=== PATIENT | male | born 2000 | race Caucasian/White ===

== ENCOUNTER → 2021-03-19 09:37 | Outpatient (CLI) | payer BC, SELFPAY ==
--- NOTE | ~2021-03-19 | XR_ITS ---
EXAMINATION: XR finger 4th RT min 2V DATE: 03/19/2021 09:50 INDICATION: Pain and swelling at the right fourth digit TECHNIQUE: Dorsal palmar, lateral and 2 oblique views of the right fourth digit were obtained COMPARISON: None FINDINGS: Alignment is normal. No fracture. Joint spaces are normal. No cortical erosions or periosteal reactio n. Soft tissue swelling centered at the fourth proximal interphalangeal joint. IMPRESSION: 1. No osseous abnormality. Reviewed, dictated and finalized at location A. BALL WINDER IMPRESSION: 1. No osseous abnormality.
== END ==
PROVIDERS: PCP Family Medicine; Visit Provider Family Medicine
DX: M79.644 Pain in right finger(s) (principal)
CPT/HCPCS: 73140

== ENCOUNTER → 2021-04-14 15:29 | Outpatient (CLI) | payer BC, SELFPAY ==
--- NOTE | ~2021-04-14 | XR_ITS ---
XR chest 2V DATE: 04/14/2021 15:41 INDICATION: Cough TECHNIQUE: 2 views COMPARISON: None FINDINGS: There is mild dextroscoliosis. Normal heart size. No hilar or mediastinal enlargement. N o pulmonary infiltrate or consolidation, pulmonary vascular congestion or pleural effusion or pneumot horax. IMPRESSION: No active cardiopulmonary disease Dextroscoliosis Reviewed, dictated and finalized at location B. [employer] MA[employer]GER
== END ==
PROVIDERS: Visit Provider Nurse Practitioner Family
DX: R05.9 Cough, unspecified (principal)
CPT/HCPCS: 71046

== ENCOUNTER 2021-06-13 12:42 | Outpatient (CLI) | payer BC, SELFPAY ==
--- NOTE | 2021-06-13 15:16 | WPDPFTINT ---
PFT Procedure Performed PFT Procedure Performed Spirometry with Pre/Post Bronchodilator Plethysmography (Lung Vol) Diffusing Cap (DLCO) Flow Vol Loop PFT Interpretation This is a pulmonary function test with pre and post-bronchodilator spirometry, plethysmography and diffusing capacity. The test was performed and results interpreted in accordance with the 2019 and 2005 ATS/ERS Task Force guidelines respectively using the Global Lung Function Initiative-2012 reference equations. Patient demonstrated good effort and cooperation. Reproducibility criteria were met. The quality of the pre bronchodilator spirometry maneuver was Grade B and post bronchodilator spirometry maneuver was Grade A. Findings: Spirometry: The contour the inspiratory and expiratory flow tracing are normal. The pre bronchodilator FVC is 6.10 L, 96% predicted. The pre bronchodilator FEV1 is 4.99 L, 94% predicted. The pre bronchodilator FEV1: FVC ratio is 82%. The post bronchodilator FVC is 5.92 L, representing a 3% decrease. The post bronchodilator FEV1 is 5.10 L, representing a 2% increase. The post bronchodilator FEV1: FVC ratio is 86%. Plethysmography: The total lung capacity is 7.99 L, 104% predicted. The functional residual capacity is 3.94 L, 104% predicted. The residual volume is 1.87 L, 110% predicted. Diffusing capacity: The diffusing capacity on adjusted for hemoglobin is 44.6, 116% predicted. The diffusing capacity adjusted for alveolar volume is 6.13, 119% predicted. Impression: The spirometry is normal without evidence of an obstructive abnormality. There is no significant improvement after inhaling a single dose of albuterol. The lung volumes are normal. The diffusing capacity is normal. There are no prior studies for comparison
== END 2021-06-13 12:43 | disposition home or self-care (01) ==
LOC: ANHPFT 12:43
PROVIDERS: PCP Family Medicine; Visit Provider Family Medicine
DX: R05.3 Chronic cough (principal)
CPT/HCPCS: 94060; 94726; 94729